=== PATIENT | female | born 1980 | race Caucasian/White ===

== ENCOUNTER 2020-02-06 06:43 | Emergency (ER) | payer BC ==
[2020-02-06] MEDS ORDERED: KETOROLAC 30 MG/ML INJ ONE ×2 (07:13→08:49)
[2020-02-06] MEDS ORDERED: ONDANSETRON 4 MG/2 ML VIAL ONE (07:14)
[2020-02-06 07:35] LABS: Absolute Lymphocytes (CBC) 2.1 K/uL (0.7-4.9); Basophils % 0.2 % (0-1.3); Hematocrit 37.5 % (36.0-45.0); Lymphocytes % 27.4 % (15.3-44.8); MPV 8.2 fL (7.6-11.3); RBC Red Blood Cell Count 4.47 M/uL (3.86-4.86)
[2020-02-06 07:52] LABS: ALT/SGPT 21 U/L (12-78); AST/SGOT 9 U/L (15-37); Albumin 3.8 g/dL (3.4-5.0); Alkaline Phosphatase 47 U/L (45-117); BUN Blood Urea Nitrogen 8 mg/dL (7-18); Bicarbonate 25 mmol/L (21-32); Bilirubin Direct < 0.1 mg/dL (0-0.2); Bilirubin Total 0.3 mg/dL (0.2-1.0); Glucose Level 118 mg/dL (74-106); Lipase 69 U/L (73-393); Potassium 3.6 mmol/L (3.5-5.1); Protein, Total 7.2 g/dL (6.4-8.2); Sodium Level 141 mmol/L (136-145)
[2020-02-06 07:55] LABS: Urine Blood 2+ (NEG); Urine Glucose NEGATIVE (NEG); Urine Protein NEGATIVE (NEG); Urine pH 5.5 (5.0-7.0)
--- NOTE | 2020-02-06 08:35 | RAD REPORT ---
EXAM DESCRIPTION: CT - Stone Protocol - 02/06/2020 8:10 am CLINICAL HISTORY: Abdominal pain. COMPARISON: None. TECHNIQUE: Computed axial tomography of the abdomen pelvis was obtained without oral or IV contrast. Lack of IV and oral contrast limits evaluation of solid organs, bowel, and vessels. Coronal reformat melanie images were obtained and reviewed. All CT scans are performed using dose optimization technique as appropriate and may include automated exposure control or mA/KV adjustment according to patient size. FINDINGS: Small right renal calculi. Mild right hydronephrosis. 2 millimeter calculus right UVJ. Sub centimeter low-density area within the right kidney nonspecific but may represent a cyst. A left renal calculus is not seen. IUD in place. 2 centimeter left ovarian cyst without significant free fluid The liver, spleen, pancreas and adrenals appear grossly normal There is no evidence of diverticulitis. The appendix appears normal IMPRESSION: A 2 millimeter calculus right UVJ with mild right hydronephrosis
--- NOTE | 2020-02-06 09:05 | EDPHYS ---
Physician Documentation [facility] Name: Franny Montague Age: 39 yrs Sex: Female : 1980 Arrival Date: 02/06/2020 Time: 06:45 Bed 4 Private MD: ED Physician Dylon Monge HPI: 02/05 07:47 This 39 yrs old Female presents to ER via Ambulatory with complaints of jr8 Abdominal Pain. 07:47 The patient presents with abdominal pain right lower quadrant. Onset: The jr8 symptoms/episode began/occurred acutely, today. The symptoms radiate to right back, the right flank. Associated signs and symptoms: Pertinent positives: nausea. The symptoms are described as stabbing. Modifying factors: The symptoms are alleviated by nothing, the symptoms are aggravated by movement. Severity of pain: At its worst the pain was moderate in the emergency department the pain is unchanged. The patient has not experienced similar symptoms in the past. The patient has not recently seen a physician. [employer]: 07:03 LMP 01/10/2020 ao Historical: - Allergies: 07:01 PENICILLINS; ao - Home Meds: 07:01 None [Active]; ao - PMHx: 07:01 None; ao - PSHx: 07:01 ; ao - Immunization history:: Adult Immunizations up to date. - Social history:: Smoking status: Patient denies any tobacco usage or history of. Patient/guardian denies using alcohol, street drugs. ROS: 07:47 Eyes: Negative for injury, pain, redness, and discharge, ENT: Negative for injury, jr8 pain, and discharge, Neck: Negative for injury, pain, and swelling, Cardiovascular: Negative for chest pain, palpitations, and edema, Respiratory: Negative for shortness of breath, cough, wheezing, and pleuritic chest pain, MS/Extremity: Negative for injury and deformity, Skin: Negative for injury, rash, and discoloration, Neuro: Negative for headache, weakness, numbness, tingling, and seizure. 07:47 Abdomen/GI: Positive for abdominal pain, nausea, Negative for vomiting, diarrhea, constipation, abdominal cramps, abdominal distension. 07:47 Back: Positive for flank pain, on the right. Exam: 07:47 Eyes: Pupils equal round and reactive to light, extra-ocular motions intact. Lids and jr8 lashes normal. Conjunctiva and sclera are non-icteric and not injected. Cornea within normal limits. Periorbital areas with no swelling, redness, or edema. ENT: Nares patent. No nasal discharge, no septal abnormalities noted. Tympanic membranes are normal and external auditory canals are clear. Oropharynx with no redness, swelling, or masses, exudates, or evidence of obstruction, uvula midline. Mucous membranes moist. Neck: Trachea midline, no thyromegaly or masses palpated, and no cervical lymphadenopathy. Supple, full range of motion without nuchal rigidity, or vertebral point tenderness. No Meningismus. Cardiovascular: Regular rate and rhythm with a normal S1 and S2. No gallops, murmurs, or rubs. Normal PMI, no JVD. No pulse deficits. Respiratory: Lungs have equal breath sounds bilaterally, clear to auscultation and percussion. No rales, rhonchi or wheezes noted. No increased work of breathing, no retractions or nasal flaring. Back: No spinal tenderness. No costovertebral tenderness. Full range of motion. Skin: Warm, dry with normal turgor. Normal color with no rashes, no lesions, and no evidence of cellulitis. MS/ Extremity: Pulses equal, no cyanosis. Neurovascular intact. Full, normal range of motion. Neuro: Awake and alert, GCS 15, oriented to person, place, time, and situation. Cranial nerves II-XII grossly intact. Motor strength 5/5 in all extremities. Sensory grossly intact. Cerebellar exam normal. Normal gait. 07:47 Abdomen/GI: Inspection: obese Bowel sounds: active, all quadrants, Palpation: soft, in all quadrants, moderate abdominal tenderness, in the anterior aspect of right lateral abdomen and right lower quadrant, mass, is not appreciated, rebound tenderness, is not appreciated, voluntary guarding, is not appreciated, involuntary guarding, is not appreciated, no appreciated organomegaly, Indicators: McBurney's point is not tender, Delgadillo's sign is negative, Rovsing's sign is negative, Liver: tenderness, is not appreciated. Vital Signs: 06:57 BP 134 / 89; Pulse 63; Resp 20; Temp 97.9; Pulse Ox 99% on R/A; Weight 90.72 kg; Height ao 5 ft. 7 in. (170.18 cm); Pain 8/10; 07:38 BP 124 / 70; Pulse 65; Resp 17; Pulse Ox 98% ; jl7 08:49 BP 109 / 63; Pulse 56; Resp 16; Pulse Ox 98% ; jl7 06:57 Body Mass Index 31.32 (90.72 kg, 170.18 cm) ao MDM: 06:47 Patient medically screened. celia 08:39 Data reviewed: vital signs, nurses notes, lab test result(s), radiologic studies, CT [facility] scan. Data interpreted: Pulse oximetry: on room air is 98 %. Interpretation: normal. Counseling: I had a detailed discussion with the patient and/or guardian regarding: the historical points, exam findings, and any diagnostic results supporting the discharge/admit diagnosis, lab results, radiology results, the need for outpatient follow up, a urologist, to return to the emergency department if symptoms worsen or persist or if there are any questions or concerns that arise at home. 08:59 Response to treatment: the patient's symptoms have markedly improved after treatment. 8 ED course: 2mm stone present. Recommended f/u with urology. If worse to come back. Pain controlled. No active vomiting . 02/05 07:11 Order name: Basic Metabolic Panel; Complete Time: 08:03 8 02/05 07:11 Order name: CBC with Diff; Complete Time: 07:46 [facility] 02/05 07:11 Order name: Creatinine for Radiology; Complete Time: 08:03 8 02/05 07:11 Order name: Hepatic Function; Complete Time: 08:03 8 02/05 07:11 Order name: Lipase; Complete Time: 08:03 [facility] 02/05 07:35 Order name: Urine Dipstick--Ancillary (enter results); Complete Time: 08:03 eb 02/05 07:35 Order name: Urine --Ancillary (enter results); Complete Time: 08:03 eb 02/05 07:04 Order name: IV Saline Lock; Complete Time: 07:36 jv1 02/05 07:04 Order name: Labs collected and sent; Complete Time: 07:36 jv1 02/05 07:04 Order name: Urine Test (obtain specimen); Complete Time: 07:36 jv1 02/05 07:04 Order name: Urine Dipstick-Ancillary (obtain specimen); Complete Time: 07:36 jv1 02/05 07:32 Order name: CT Stone Protocol; Complete Time: 08:38 jr8 Administered Medications: 07:28 Drug: Zofran (Ondansetron) 4 mg Route: IVP; Site: left hand; jl7 07:50 Follow up: Response: No adverse reaction; Nausea is decreased jl7 07:30 Drug: TORadol - Ketorolac 15 mg Route: IVP; Site: left hand; jl7 07:50 Follow up: Response: No adverse reaction; Pain is decreased jl7 08:48 Drug: TORadol - Ketorolac 15 mg Route: IVP; Site: left hand; jl7 09:00 Follow up: Response: No adverse reaction; Pain is decreased jl7 Disposition: 11:01 Co-signature as Attending Physician, Dylon Monge MD. celia Disposition: 02/06/20 09:04 Discharged to Home. Impression: Hydronephrosis with renal and ureteral calculous obstruction. - Condition is Stable. - Discharge Instructions: Kidney Stones, Hydronephrosis. - Prescriptions for Ibuprofen 800 mg Oral Tablet - take 1 tablet by ORAL route every 12 hours As needed take with food; 20 tablet. Tylenol- Codeine #3 300-30 mg Oral Tablet - take 2 tablets by ORAL route every 6 hours As needed; 20 tablet. Zofran 4 mg Oral Tablet - take 1 tablet by ORAL route every 12 hours As needed; 20 tablet. Flomax 0.4 mg Oral Capsule, Sust. Release 24 hr - take 1 capsule by ORAL route once daily 1/2 hour following the same meal each day; 30 capsule. Cipro 500 mg Oral Tablet - take 1 tablet by ORAL route every 12 hours for 7 days; 14 tablet. - Medication Reconciliation Form, Thank You Letter, Antibiotic Education, Prescription Opioid Use, Family Work Release form. - Follow up: Eric Fairchild MD; When: 1 week; Reason: Recheck today's complaints, Continuance of care, Re-evaluation by your physician. - Problem is new. - Symptoms have improved. Signatures: Dispatcher [employer] Dylon Kinsey MD MD cha Roszak, Josh, PA PA jr8 Dwaine Randall, RN RN ao Robert Cuevas RN RN jl7 Lisa Mota RN RN jv1 Corrections: (The following items were deleted from the chart) 07:35 07:28 Abdomen Pelvis W Con+CT.RAD.BRZ ordered. EDMS EDMS 07:39 07:36 UA MICROSCOPIC+U.LAB.BRZ ordered. EDMS EDMS 09:13 09:04 02/06/2020 09:04 Discharged to Home. Impression: Hydronephrosis with renal and jl7 ureteral calculous obstruction. Condition is Stable. Forms are Medication Reconciliation Form, Thank You Letter, Antibiotic Education, Prescription Opioid Use. Follow up: Eric Fairchidl; When: 1 week; Reason: Recheck today's complaints, Continuance of care, Re-evaluation by your physician. Problem is new. Symptoms have improved. jr8
--- NOTE | 2020-02-06 09:05 | ER ---
Nurse's Notes [facility] Name: Franny Montague Age: 39 yrs Sex: Female : 1980 Arrival Date: 02/06/2020 Time: 06:45 Bed 4 Private MD: Diagnosis: Hydronephrosis with renal and ureteral calculous obstruction Presentation: 02/05 06:57 Chief complaint: Patient states: Abdominal pain started at 0530. Patient report pain ao towards the right side of the abdomen. Patient was negative for vomiting but reported nausea. Coronavirus screen: Patient denies fever greater than 100.4F, cough, shortness of breath, or difficulty breathing. Proceed with normal triage process. Ebola Screen: Patient negative for fever greater than or equal to 101.5 degrees Fahrenheit, and additional compatible Ebola Virus Disease symptoms Patient denies exposure to infectious person. Patient denies travel to an Ebola-affected area in the 21 days before illness onset. Initial Sepsis Screen: Does the patient meet any 2 criteria? No. Patient's initial sepsis screen is negative. Does the patient have a suspected source of infection? No. Patient's initial sepsis screen is negative. Risk Assessment: Do you want to hurt yourself or someone else? Patient reports no desire to harm self or others. 06:57 Method Of Arrival: Ambulatory ao 06:57 Acuity: DULCE 3 ao 07:02 Onset of symptoms was February 06, 2020 at 05:30. 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 - Social history:: Smoking status: Patient denies any tobacco usage or history of. Patient/guardian denies using alcohol, street drugs. Screenin:02 Abuse screen: Denies threats or abuse. Denies injuries from another. Nutritional ao screening: No deficits noted. On. Tuberculosis screening: No symptoms or risk factors identified. Fall Risk None identified. Assessment: 07:00 General: Appears in no apparent distress. uncomfortable, Behavior is calm, cooperative, jl7 appropriate for age. Pain: Complains of pain in right lower quadrant Pain does not radiate. Pain currently is 8 out of 10 on a pain scale. at worst was 10 out of 10 on a pain scale. Pain began 2 hours ago. Is intermittent, Also complains of nausea. Neuro: Level of Consciousness is awake, alert, obeys commands, Oriented to person, place, time, situation. Cardiovascular: Patient's skin is warm and dry. Respiratory: Airway is patent Respiratory effort is even, unlabored, Respiratory pattern is regular, symmetrical. GI: Abdomen is non-distended, Bowel sounds present X 4 quads. Abd is soft X 4 quads Abdomen is tender to palpation in right lower quadrant. : Urine is clear, Denies burning with urination. Derm: Skin is pink, warm \T\ dry. 08:00 Reassessment: Patient appears in no apparent distress at this time. Patient and/or jl7 family updated on plan of care and expected duration. Pain level reassessed. Patient is alert, oriented x 3, equal unlabored respirations, skin warm/dry/pink. pain rated 2/10 at this time. Vital Signs: 06:57 BP 134 / 89; Pulse 63; Resp 20; Temp 97.9; Pulse Ox 99% on R/A; Weight 90.72 kg; Height ao 5 ft. 7 in. (170.18 cm); Pain 8/10; 07:38 BP 124 / 70; Pulse 65; Resp 17; Pulse Ox 98% ; jl7 08:49 BP 109 / 63; Pulse 56; Resp 16; Pulse Ox 98% ; jl7 06:57 Body Mass Index 31.32 (90.72 kg, 170.18 cm) ao ED Course: 06:45 Patient arrived in ED. cl3 06:45 John Sorto PA is PHCP. jr8 06:45 Dylon Monge MD is Attending Physician. jr8 07:01 Triage completed. ao 07:02 Arm band placed on right wrist. Patient placed in an exam room, on a stretcher, on ao oxygen, on engine monitor, Patient notified of wait time. 07:02 Patient has correct armband on for positive identification. Pulse ox on. NIBP on. ao 07:10 Robert Cuevas, MOISÉS is Primary Nurse. jl7 07:10 Urine collected: clean catch specimen, cloudy. dh3 07:20 Initial lab(s) drawn, by md, sent to lab. Inserted saline lock: 22 gauge in left hand, 3 using aseptic technique. Blood collected. 07:30 Radiology exam delayed due to lab results not completed at this time. (BUN/Creatinine) vm2 test not completed at this time. 08:10 CT Stone Protocol In Process Unspecified. EDMS 08:49 No provider procedures requiring assistance completed. jl7 08:59 Eric Fairchild MD is Referral Physician. jr8 09:13 IV discontinued, intact, bleeding controlled, No redness/swelling at site. Pressure jl7 dressing applied. Administered Medications: 07:28 Drug: Zofran (Ondansetron) 4 mg Route: IVP; Site: left hand; jl7 07:50 Follow up: Response: No adverse reaction; Nausea is decreased jl7 07:30 Drug: TORadol - Ketorolac 15 mg Route: IVP; Site: left hand; jl7 07:50 Follow up: Response: No adverse reaction; Pain is decreased jl7 08:48 Drug: TORadol - Ketorolac 15 mg Route: IVP; Site: left hand; jl7 09:00 Follow up: Response: No adverse reaction; Pain is decreased jl7 Outcome: 09:04 Discharge ordered by . jr8 09:12 Discharged to home ambulatory. jl7 09:12 Condition: stable 09:12 Discharge instructions given to patient, Instructed on discharge instructions, follow up and referral plans. medication usage, Demonstrated understanding of instructions, follow-up care, medications, Prescriptions given X 5 09:13 Patient left the ED. jl7 Signatures: Dispatcher [employer] EDIL John Sorto PA PA jr8 Dwaine Randall, RN RN Robert Malik RN RN jl7 Jen Lynn 2 Cathleen Smith 3 Casey Hunter 3
[2020-02-06 09:21] VITALS: TEMP 97.9
[2020-02-06 09:24] VITALS: BP 109/63; O2SAT 98
== END 2020-02-06 09:13 | disposition home or self-care (01) ==
LOC: ER 06:43
DX: N13.2 Hydronephrosis with renal and ureteral calculous obstruction (principal); Z88.0 Allergy status to penicillin
CPT/HCPCS: 85025; 80048; 36415; 81025; 80076; 81003; 83690; 76377; 74176; 96375; 96374; 99284; J2405